=== PATIENT | female | born 1995 | race Caucasian/White ===

== ENCOUNTER → 2016-05-21 | Outpatient (CLI) | payer MEDICAID, OTHER ==
[~2016-05-21] MED LIST: ONDA8TAB8 SL; PROM25TA5 PO; TERC0.4C2 VAGINAL; TERC0.8C VAGINAL; [UNRECOGNIZED DRUG - CODE] PO
== END ==
LOC: HPND 14:25
PROVIDERS: ATTEND Obstetrics & Gynecology
DX: O26.841 Uterine size-date discrepancy, first trimester (principal); Z3A.08 8 weeks gestation of pregnancy
CPT/HCPCS: 76801

== ENCOUNTER → 2016-09-03 | Outpatient (CLI) | payer MEDICAID ==
[~2016-09-03] MED LIST changes: -PROM25TA5 PO; -TERC0.4C2 VAGINAL
== END ==
LOC: HPND 08:30
PROVIDERS: ATTEND Obstetrics & Gynecology
DX: O26.872 Cervical shortening, second trimester (principal); O34.82 Maternal care for other abnormalities of pelvic organs, second trimester; O44.42 Low lying placenta NOS or without hemorrhage, second trimester; Z3A.23 23 weeks gestation of pregnancy
CPT/HCPCS: 76816; 76817

== ENCOUNTER → 2016-10-01 | Outpatient (CLI) | payer MEDICAID | LOC: HPND 08:58 | PROVIDERS: ATTEND Obstetrics & Gynecology | DX: O34.82 Maternal care for other abnormalities of pelvic organs, second trimester (principal) | CPT/HCPCS: 76816; 76818; 76820; 76821 ==

== ENCOUNTER 2016-11-08 09:52 | Emergency (ER) | payer MEDICAID ==
[~2016-11-08 09:52] MED LIST changes: -TERC0.8C VAGINAL
--- NOTE | 2016-11-08 11:09 | PD ---
HPI Chief Complaint lower abd pressure Date Seen: Nov 08, 2016 Time Seen: 10:41 Travel History International Travel<30 Days: No Contact w/Intl Traveler<30Days: No History of Present Illness HPI 21 yo at 33/1 wks presented to OB triage with complaints of lower abd pressure since Saturday. Pt also stated she had 1 episode of vomiting this am, now resolved. Denies LOF, vaginal bleeding, and contractions. Endorses movement. Denies RODRIGUEZ, SOB Of note: Pt stated this past Saturday she went to [facility] in [place] for the lower abd pressure, she was told she was 2cm dilated, given only 1 dose of betamethasone and discharged on Saturday. Pt also stated she has tried to get an appointment with her OB this wk, but was not able to and thus decided to come to triage for evaluation. Weeks Gestation: 33 Para: 2 : 4 Miscarriage: 1 History Past Medical History Narrative Medical asthma- well controlled (has not used albuterol inhaler in 1 yr) Obstetric History Obstetric History -1 miscarriage at 8 wks gestation, 2012 - x2 (2012, 2013) full term, no complications -current complicated by IUGR and echogenic bowels Past Surgical History Narrative Surgical D&C for miscarriage, 2012 Family History Narrative Family History arrhythmia- maternal grandparents DM- paternal grandparents Social History Alcohol Use: No Tobacco Use: No Substance Abuse: No Allergies-Medications (Allergen,Severity, Reaction): Coded Allergies: No Known Allergies (Verified , 10/15/16) Home Meds Active Scripts Ondansetron Odt (Ondansetron Odt) 8 Mg Tab, 8 MG SL Q8H Y for NAUSEA OR VOMITING , #30 TAB 1 Refill Prov:Renata Mustafa CNM 06/18/16 Vit Without Vit A W/ (Nestabs Dha 32-1 mg) 1 Hector Hector, 1 PACK PO DAILY, #30 BOX 7 Refills Prov:Renata Mustafa CNM [facility] 05/08/16 Review of Systems Except as stated in HPI: all other systems reviewed are Neg Physical Exam Narrative GENERAL: Well-nourished, well-developed patient. SKIN: Warm and dry. HEAD: Normocephalic and atraumatic. EYES: No scleral icterus. No injection or drainage. ENT: No nasal drainage noted. Mucous membranes pink. Airway patent. NECK: Supple, trachea midline. No JVD. CARDIOVASCULAR: Regular rate and rhythm without murmurs, gallops, or rubs. RESPIRATORY: Breath sounds equal bilaterally. No accessory muscle use. BREASTS: Bilateral exam showed no masses , no retractions, no nipple discharge. ABDOMEN/GI: Abdomen soft, non-tender, bowel sounds present, no rebound, no guarding Gravid to 33/1 weeks size GENITOURINARY: External Genitalia: intact and normal in appearance Cervix: posterior Dilatation: 2 cm, internal os closed Membranes: intact Uterine Contractions: none FHT's: Category: 1 Baseline: 140 Reactive: positive Variability: moderate Decels: none EXTREMITIES: No cyanosis or edema. BACK: Nontender without obvious deformity. No CVA tenderness. NEUROLOGICAL: Awake and alert. Motor and sensory grossly within normal limits. Five out of 5 muscle strength in all muscle groups. Normal speech. Data Data Orders Orders Vital Signs (Adult) .ON ADMISSION (11/08/16 10:30) ^ Labor Status (11/08/16 10:30) ^ Non Stress Test (11/08/16 10:30) ^ Hydration (11/08/16 10:30) MDM Medical Record Reviewed: Yes Plan 21 yo at 33/ presented to OB triage with complaints of lower abd pressure. 1. IUP at 33 weeks, complicated by IUGR and echogenic bowel - continue routine OB care -encourage oral hydration - encourage vitamins -NST, reassuring -FHT, cat 1 -Ob diagnostic u/s reports done today (11/08): BPP 10/10 and normal doppler flow studies -Pt found to be closed on vaginal/pelvic exam - fibronectin ordered, if positive pt will receive 2nd dose of betamethasone for lung maturity. -False labor, anticipate discharge today in stable condition. -Pt to follow up with Ob () for routine care on Saturday. Update: fibronectin test positive. Discussed with pt that 2nd dose of steroids will be given but may not be effective since it was not given appropriately. sdw Dr. Dozier Diagnosis Diagnosis: Primary Impression: 33 weeks gestation of Additional Impression: Pelvic pressure in Disposition: DISCHARGE HOME Condition: Stable Patient Instructions: General Instructions, Having Your Baby: The Labor Process (GEN) Anita Barnes MD R1 Nov 08, 2016 10:50
[2016-11-08] MEDS ORDERED: ACETAMINOPHEN 325 MG TAB PO ONE (11:15)
[2016-11-08] MEDS ORDERED: BETAMETHASONE SOD PHOS/ACETATE SUSP 30 MG/5 ML VIAL IM ONE (13:00)
== END 2016-11-08 12:59 | disposition home or self-care (01) ==
LOC: HOBED 09:52
DX: O26.893 Other specified pregnancy related conditions, third trimester (principal); R10.9 Unspecified abdominal pain; Z3A.33 33 weeks gestation of pregnancy
CPT/HCPCS: 82731; 96372; 99284; J0702

== ENCOUNTER 2016-12-08 22:16 | Emergency (ER) | payer MEDICAID ==
[~2016-12-08] VITALS: Ht 165.1 cm; Wt 86.2 kg
--- NOTE | 2016-12-08 23:12 | PD ---
HPI Chief Complaint Contractions, bloody discharge, and pressure Date Seen: Dec 08, 2016 Time Seen: 23:00 Travel History International Travel<30 Days: No Contact w/Intl Traveler<30Days: No Known Affected Area: No History of Present Illness HPI Patient 21-year-old at 37 weeks presents complaining of bloody show contractions and pelvic pressure. [facility] and is being followed for mild IUGR in this baby, heart tones are reactive and she is silvestre only occasionally Weeks Gestation: 37 Para: 2 : 4 Miscarriage: 1 History Obstetric History Obstetric History 2 vaginal deliveries 1 early loss IUGR noted in this fetus with growth rate less than 3rd percentile however adequate growth has been noted in serial ultrasounds, and she has a planned induction at 38 weeks which is a week from yesterday for IUGR Social History Alcohol Use: No Tobacco Use: No Substance Abuse: No Allergies-Medications (Allergen,Severity, Reaction): Coded Allergies: No Known Allergies (Verified , 12/06/16) Home Meds Active Scripts Vit Without Vit A W/ (Nestabs Dha 32-1 mg) 1 Hector Hector, 1 PACK PO DAILY, #30 BOX 7 Refills Prov:Renata Mustafa CNM [facility] 05/08/16 Discontinued Scripts Ondansetron Odt (Ondansetron Odt) 8 Mg Tab, 8 MG SL Q8H Y for NAUSEA OR VOMITING , #30 TAB 1 Refill Prov:Renata Mustafa CNM [facility] 06/18/16 Review of Systems General / Constitutional: No: Fever, Weight Gain, Chills, Other Eyes: No: Diploplia, Blurred Vision, Visual changes, Pain, Photophobia HENT: No: Headaches, Vertigo, Lightheadedness Cardiovascular: No: Irregular Rhythm, Chest Pain or Discomfort, Palpitations, Tachycardia, Syncope, Varicosities, Edema, Cyanosis Respiratory: No: Cough, Short of Breath, Other Gastrointestinal: No: Nausea, Vomiting, Diarrhea Genitourinary: No: Decreased Urinary Output, Oliguria Musculoskeletal: No: Limited ROM, Weakness, Cramping, Edema, Pain Skin: No Rash, No Itching, No Dryness, No Lumps, No Change in Pigmentation, No Change in Nails, No Alopecia, No Lesions Neurologic: No: Weakness, Dizziness, Syncope, Focal Abnormalities, Coordination Problem, Headache, Slurred Speech, Seizures Psychiatric: No: Depression, Suicidal Ideations, Homicidal Ideation Endocrine: No: Heat Intolerance, Cold Intolerance, Polydipsia, Polyuria, Other Physical Exam Narrative GENERAL: Well-nourished, well-developed patient. SKIN: Warm and dry. HEAD: Normocephalic and atraumatic. EYES: No scleral icterus. No injection or drainage. ENT: No nasal drainage noted. Mucous membranes pink. Airway patent. NECK: Supple, trachea midline. No JVD. CARDIOVASCULAR: Regular rate and rhythm without murmurs, gallops, or rubs. RESPIRATORY: Breath sounds equal bilaterally. No accessory muscle use. BREASTS: Bilateral exam showed no masses , no retractions, no nipple discharge. ABDOMEN/GI: Abdomen soft, non-tender, bowel sounds present, no rebound, no guarding Gravid to [37-] weeks size Fundal Height: [35-] GENITOURINARY: External Genitalia: intact and normal in appearance BUS glands: [-] Cervix: [-] Dilatation: [2-] Effacement: [-thick] Station: [-3] Presentation: [vtx-] Membranes: [intact ] Uterine Contractions: [irreg-] FHT's: Category: [1-] Baseline: [-133] Reactive: [yes-] Variability: [mod-] Decels: [0-] EXTREMITIES: No cyanosis or edema. BACK: Nontender without obvious deformity. No CVA tenderness. NEUROLOGICAL: Awake and alert. Motor and sensory grossly within normal limits. Five out of 5 muscle strength in all muscle groups. Normal speech. MDM Interpretation(s) This patient is 21-year-old now at 37 weeks presents with bloody show contractions and pelvic pressure. heart rate is reactive she is having occasional contraction. Cervix is unchanged from previous exams 2 centimeters thick and -3 , vertex presentation. Plan Plan to discharge patient home to bedrest as needed to increase fluid intake for hydration Tylenol use liberally, heating pad or hot bath centrally. She is to return for her routine OB appointment or come here sooner for increasing pain etc. and of course were planning to set her up for induction in 1 week for IUGR Diagnosis Diagnosis: Primary Impression: Vaginal show Additional Impression: IUGR, Disposition: 01 DISCHARGE HOME Condition: Stable Serjio Gomez II, MD Dec 08, 2016 23:12
== END 2016-12-08 23:30 | disposition home or self-care (01) ==
LOC: HOBED 22:16
DX: O26.893 Other specified pregnancy related conditions, third trimester (principal); N89.8 Other specified noninflammatory disorders of vagina; O36.5930 Maternal care for other known or suspected poor fetal growth, third trimester, not applicable or unspecified; O62.9 Abnormality of forces of labor, unspecified; Z3A.37 37 weeks gestation of pregnancy
CPT/HCPCS: 59025

== ENCOUNTER 2016-12-14 08:02 | Inpatient (IN) | payer MEDICAID ==
[~2016-12-14] VITALS: Ht 162.6 cm; Wt 95.0 kg
[2016-12-14] VITALS (162 sets, daily range): BP systolic 91–142; BP diastolic 50–114; PULSE 72–187; RESP 16–20; TEMP 97.6–99.1
[~2016-12-14 08:02] MED LIST changes: -ONDA8TAB8 SL
[2016-12-14] MEDS ORDERED: LIDOCAINE HCL 1% 50 ML VIAL INFIL PRN (08:15)
[2016-12-14] MEDS ORDERED: MINERAL OIL 10 ML VIAL TOPICAL PRN (08:15)
[2016-12-14] MEDS ORDERED: LIDOCAINE HCL 1% 50 ML VIAL I-DERMAL PRN (08:15)
[2016-12-14] MEDS ORDERED: SODIUM CHLORID 0.9% 500 ML INJ 500 ML IV PRN (08:15)
[2016-12-14] MEDS ORDERED: CITRIC ACID-SODIUM CITRATE LIQ 30 ML UDC PO SCH (08:15)
[2016-12-14] MEDS ORDERED: OXYTOCIN 30 UNITS-500ML PREMIX 500 ML IV ONE (08:30)
[2016-12-14] MEDS ORDERED: LACTATED RINGER'S 1000 ML INJ 1,000 ML IV PRN (08:30)
[2016-12-14] MEDS ORDERED: SODIUM CHLOR 0.9% 1000 ML INJ 1,000 ML IV PRN (08:33)
[2016-12-14] MEDS ORDERED: DINOPROSTONE 10 MG VAG INSERT VAGINAL ONE (08:45)
[2016-12-14] MEDS ORDERED: ALBU6.7H INH (08:57)
[2016-12-14] MEDS ORDERED: OXYTOCIN 30 UNITS-500ML PREMIX 500 ML IV SCH ×2 (09:00→22:00)
[2016-12-14] MEDS: LACTATED RINGER'S 1000 ML INJ 1,000 ML IV SCH ×2 (09:03→18:20)
--- NOTE | 2016-12-14 09:27 | HHI.HP ---
HPI Chief Complaint Scheduled induction for IUGR Date Seen: Dec 14, 2016 Time Seen: 09:00 Travel History International Travel<30 Days: No Contact w/Intl Traveler<30Days: No History of Present Illness HPI 18-year-old at 38/2 weeks gestation presenting for scheduled induction due to IUGR. Today she feels well. Denies vagina bleeding, but endorses spotting for the last 5-7 days. Denies leakage of fluid, contractions. Endorses movement. Denies chest pain, shortness of breath, dysuria, abdominal pain. History Past Medical History Narrative Medical Intermittent asthma, has not needed her inhaler for several months Obstetric History Obstetric History Two prior vaginal deliveries, uncomplicated Past Surgical History Surgical History: No Previous Surgery Family History Family History: Negative Social History Alcohol Use: No Tobacco Use: No Substance Abuse: No Allergies-Medications (Allergen,Severity, Reaction): Coded Allergies: No Known Allergies (Verified , 12/14/16) Home Meds Active Scripts Vit Without Vit A W/ (Nestabs Dha 32-1 mg) 1 Hector Hector, 1 PACK PO DAILY, #30 BOX 7 Refills Prov:Renata Mustafa 05/08/16 Reported Medications Albuterol 6.7 GM Inh (Proventil Hfa 6.7 GM Inh) 90 Mcg/Act Aer, 1 PUFF INH Q4H Y for SHORTNESS OF BREATH, #1 INHALER 0 Refills 12/14/16 Discontinued Scripts Ondansetron Odt (Ondansetron Odt) 8 Mg Tab, 8 MG SL Q8H Y for NAUSEA OR VOMITING , #30 TAB 1 Refill Prov:Renata Mustafa 06/18/16 Review of Systems Except as stated in HPI: all other systems reviewed are Neg Physical Exam Vital Signs Date Time Temp Pulse Resp B/P (MAP) Pulse Ox O2 Delivery O2 Flow Rate FiO2 12/14/16 08:24 82 116/71 (86) Narrative GENERAL: Well-nourished, well-developed patient. SKIN: Warm and dry. HEAD: Normocephalic and atraumatic. EYES: No scleral icterus. No injection or drainage. ENT: No nasal drainage noted. Mucous membranes pink. Airway patent. CARDIOVASCULAR: Regular rate and rhythm without murmurs, gallops, or rubs. RESPIRATORY: Breath sounds equal bilaterally. No accessory muscle use. ABDOMEN/GI: Abdomen soft, non-tender, no rebound, no guarding GENITOURINARY: Cervix: midposition Dilation: 4 cm Effacement: 80% Presentation: Vertex Membranes: Intact Contractions: none FHT's: Category: 1 Baseline: 135 Reactive: Y Variability: moderate Decels: N EXTREMITIES: No cyanosis or edema. NEUROLOGICAL: Awake and alert. Motor and sensory grossly within normal limits. Normal speech. Caprini VTE Risk Assessment Caprini VTE Risk Assessment: No/Low Risk (score <= 1) Data Data Vital Signs Reviewed: Yes Orders Orders Admit To Inpatient (12/14/16 ) Code Status (12/14/16 08:13) Vital Signs (Adult) .Per protocol (12/14/16 08:13) Activity Oob Ad Jenna (12/14/16 08:13) Heart (12/14/16 08:13) Amnioinfusion (12/14/16 08:13) Urinary Catheter Management .ONCE (12/14/16 08:13) Diet Liquid (12/14/16 Breakfast) Lactated Ringer's 1000 Ml Inj (Lr 1000 M (12/14/16 08:30) Lactated Ringer's 1000 Ml Inj (Lr 1000 M (12/14/16 08:30) Sodium Chlorid 0.9% 500 Ml Inj (Ns 500 M (12/14/16 08:15) Sodium Chlor 0.9% 1000 Ml Inj (Ns 1000 M (12/14/16 08:33) Lidocaine 1% Inj (50 Ml) (Xylocaine 1% I (12/14/16 08:15) Citric Acid-Sodium Citrate Liq (Bicitra (12/14/16 08:15) Fentanyl Inj (Fentanyl Inj) (12/14/16 08:15) Fentanyl Inj (Fentanyl Inj) (12/14/16 08:15) Complete Blood Count With Diff (12/14/16 08:13) Hold Clot (12/14/16 08:13) Abo/Rh Blood Type (12/14/16 08:13) Urinalysis - C+S If Indicated (12/14/16 08:13) Drug Screen, Random Urine (12/14/16 08:13) Resp Oxygen Non Rebreathe Mask (12/14/16 ) ^ Epidural / Intrathecal Infus (12/14/16 08:13) Oxytocin 30 Units-500ml Premix (Pitocin (12/14/16 08:30) Lidocaine 1% Inj (50 Ml) (Xylocaine 1% I (12/14/16 08:15) Light Mineral Oil (Muri-Lube Oil) (12/14/16 08:15) Inpatient Certification (12/14/16 ) Specimen To Be Collected PRN (12/14/16 08:13) Specimen To Be Collected PRN (12/14/16 08:13) Dinoprostone Vag Insert (Cervidil Vag In (12/14/16 08:45) ^ Non Stress Test (12/14/16 08:48) Response To Medication .Post New Med Administration, Reaction (12/14/16 08:48) ^ Discontinue Medication (12/14/16 08:48) Oxytocin 30 Units-500ml Premix (Pitocin (12/14/16 09:00) Influenza (Quad) Vaccine Inj (Flu (Quadr (12/15/16 10:00) Group B Strep: Negative Assessment/Plan Assessment and Plan 21-year-old 012 at 38/2 weeks gestation presenting for scheduled induction due to IUGR #1 IUP Category 1 tracing, reassuring #2 GBS negative #3 IUGR Most recent growth scan on 12/06 showed baby measuring at 33/1 weeks gestation, estimated weight of 1988 g - Notify NICU team for delivery #4 intermittent asthma Asymptomatic, continue to monitor #5 induction of labor Cervix at approximately 4 cm, 70-80% effaced - Admit to labor and delivery - Began oxytocin 02/18/29 titrated per protocol - Routine labor care Martin Unger MD R2 Dec 14, 2016 09:27
--- NOTE | 2016-12-14 10:13 | PD.LABORPN ---
Subjective Subjective Doing well, no concerns. No pain, not feeling contractions, good FM. Objective Vital Signs Vital Signs Date Time Temp Pulse Resp B/P (MAP) Pulse Ox O2 Delivery O2 Flow Rate FiO2 12/14/16 09:30 80 114/74 (87) 12/14/16 09:26 16 12/14/16 08:30 98.0 16 12/14/16 08:24 82 116/71 (86) Objective Pelvic Exam: Cervix: midposition Dilatation: 4 cm Effacement: 80% Station: -2 Presentation: Vertex Membranes: AROM Uterine Contractions: Irregular every 10 min FHT's: Category: 1 Baseline: 135 Reactive: Y Variability: moderate Decels: N Weeks Gestation: 38 Gest Age Assessed Date: Dec 14, 2016 Gest Age Assessed Time: 10:12 Pt started active labor?: No Medical induction of labor?: Yes Medical induction start date: Dec 14, 2016 Medical induction start time: 09:00 Artificial rupture of membrane: Yes Artificial ROM date: Dec 14, 2016 Artifical ROM time: 10:12 Assessment/Plan Assessment and Plan 21-year-old 012 at 38/2 weeks gestation presenting for scheduled induction due to IUGR #1 IUP Category 1 tracing, reassuring #2 GBS negative #3 IUGR Most recent growth scan on 12/06 showed baby measuring at 33/1 weeks gestation, estimated weight of 1988 g - Notify NICU team for delivery #4 intermittent asthma Asymptomatic, continue to monitor #5 induction of labor Cervix at approximately 4 cm, 70-80% effaced - Continue oxytocin 02/18/29 titrated per protocol - S/p AROM Continue routine labor care Martin Unger MD R2 Dec 14, 2016 10:13
[2016-12-14 10:17] LABS: AUTOMATED NEUTROPHIL # 6.8 TH/MM3 (1.8-7.7); BASOPHIL % 0.2 % (0.0-2.0); EOSINOPHIL # 0.1 TH/MM3 (0-0.4); EOSINOPHIL % 1.4 % (0.0-4.0); HEMATOCRIT 33.9 % (35.0-46.0); HEMO FLAGS DIFF FINAL; LYMPH % 15.5 % (9.0-44.0); LYMPHOCYTE # 1.4 TH/MM3 (1.0-4.8); MEAN CELL VOLUME 91.8 FL (80.0-100.0); MEAN CORPUSCULAR HEMOGLOBIN 32.1 PG (27.0-34.0); MEAN CORPUSCULAR HGB CONC 34.9 % (32.0-36.0); MONO % 9.3 % (0.0-8.0); NEUT % 73.6 % (16.0-70.0); PLATELET COUNT 260 TH/MM3 (150-450); RED BLOOD COUNT 3.69 MIL/MM3 (4.00-5.30); RED CELL DISTRIBUTION WIDTH 12.6 % (11.6-17.2); WHITE BLOOD COUNT 9.2 TH/MM3 (4.0-11.0)
[2016-12-14 10:48] LABS: BLOOD, URINE NEG (NEG); GLUCOSE,URINE NEG (NEG); KETONE, URINE NEG (NEG); NITRITE,URINE NEG (NEG); PH, URINE 7.5 (5.0-8.5); SQUAMOUS EPITHELIAL CELL URINE <1 /hpf (0-5); URINE COLOR LIGHT-YELLOW (YELLW/STRAW)
[2016-12-14 10:50] LABS: COMMENT (UR) CULT NOT INDICATED; CULTURE IF INDICATED CULT NOT INDICATED
--- NOTE | 2016-12-14 15:12 | PD.LABORPN ---
Subjective Subjective s/p IUPC by nurse. Patient is doing well and making cervical change. Objective Vital Signs Vital Signs Date Time Temp Pulse Resp B/P (MAP) Pulse Ox O2 Delivery O2 Flow Rate FiO2 12/14/16 14:29 16 12/14/16 14:25 76 12/14/16 14:20 80 12/14/16 14:15 78 12/14/16 14:15 77 98/57 (71) 12/14/16 14:00 16 12/14/16 13:50 75 12/14/16 13:46 74 100/52 (68) 12/14/16 13:45 77 12/14/16 13:40 74 12/14/16 13:35 79 12/14/16 13:30 16 12/14/16 13:30 77 105/59 (74) 12/14/16 13:30 72 12/14/16 13:25 77 12/14/16 13:20 73 12/14/16 13:16 74 93/61 (72) 12/14/16 13:00 98.5 16 12/14/16 12:46 77 119/73 (88) 12/14/16 12:45 80 12/14/16 12:40 85 12/14/16 12:35 84 12/14/16 12:31 77 127/84 (98) 12/14/16 12:30 16 12/14/16 12:30 89 12/14/16 12:25 86 12/14/16 12:20 91 12/14/16 12:16 94 121/75 (90) 12/14/16 12:15 92 12/14/16 12:10 111 12/14/16 12:05 83 12/14/16 12:00 92 12/14/16 12:00 16 12/14/16 12:00 90 119/80 (93) 12/14/16 11:55 89 12/14/16 11:50 89 12/14/16 11:45 89 12/14/16 11:45 92 115/81 (92) 12/14/16 11:40 89 122/71 (88) 12/14/16 11:21 98.1 16 12/14/16 11:15 16 12/14/16 11:00 16 12/14/16 10:45 16 12/14/16 10:35 91 115/60 (78) 12/14/16 10:15 98.5 16 12/14/16 10:00 75 123/90 (101) 12/14/16 09:30 80 114/74 (87) 12/14/16 09:26 16 12/14/16 08:30 98.0 16 12/14/16 08:24 82 116/71 (86) Objective Pelvic Exam: Cervix: mid Dilatation: 5-6 Effacement: 100% Station: -1 Presentation: vetex Membranes: AROM Uterine Contractions: q2-3min FHT's: Category: 1 Baseline: 110 Reactive: yes Variability: moderate Decels: no Weeks Gestation: 38 Gest Age Assessed Date: Dec 14, 2016 Gest Age Assessed Time: 10:12 Pt started active labor?: No Medical induction of labor?: Yes Medical induction start date: Dec 14, 2016 Medical induction start time: 09:00 Artificial rupture of membrane: Yes Artificial ROM date: Dec 14, 2016 Artifical ROM time: 10:12 Assessment/Plan Assessment and Plan 21-year-old 012 at 38/2 weeks gestation presenting for scheduled induction due to IUGR #1 IUP Category 1 tracing, reassuring #2 GBS negative #3 IUGR Most recent growth scan on 12/06 showed baby measuring at 33/1 weeks gestation, estimated weight of 1988 g - Notify NICU team for delivery #4 intermittent asthma Asymptomatic, continue to monitor #5 induction of labor Cervix at approximately 5-6 cm, 100% effaced - Continue oxytocin 02/18/29 titrated per protocol - S/p AROM and IUPC Continue routine labor care Sarah Beth Mccoy MD R1 Dec 14, 2016 15:12
[2016-12-14] MEDS ORDERED: MEASLES, MUMPS, RUBELLA VACCINE 0.5 ML VIAL SQ ONE (16:00)
[2016-12-14] MEDS ORDERED: DIPHTH/TETANUS/ACEL PERTUSSIS (BOOSTER) 0.5 ML VIAL/PFS IM ONE (16:00)
[2016-12-14] MEDS ORDERED: ePHEDrine/NS 25 MG/5 ML SYR ONE (20:46)
[2016-12-14] MEDS ORDERED: fentaNYL 2MCG-BUPIV 0.125% INJ 100 ML ONE (20:46)
--- NOTE | 2016-12-14 21:59 | PD.OB.DELI ---
Weeks gestation: 38 Gest age assessed date: Dec 14, 2016 Gest age assessed time: 10:12 Pt started active labor?: No Medical induction of labor?: Yes Medical induction start date: Dec 14, 2016 Medical induction start time: 09:00 Artificial rupture of membrane: Yes Artificial ROM date: Dec 14, 2016 Artifical ROM time: 10:12 Anesthesia: Epidural Episiotomy: None Vaginal Delivery: Normal Presentation: Occiput anterior Nuchal Cord: x2 Delayed cord clamping (45 sec): Yes : Male, Single Delivery date: Dec 14, 2016 Delivery time: 21:47 One Minute : 8 Five Minute : 9 Weight: 2610 gm Placenta: Spontaneous delivery, Intact Laceration: No lacerations Estimated blood loss: 100cc Additional Information IUGR induction Serjio Gomez II, MD Dec 14, 2016 21:59
[2016-12-14] MEDS ORDERED: SODIUM CHLORIDE 0.9% FLUSH 10 ML FLUSH IV FLUSH PRN (22:00)
[2016-12-14] MEDS ORDERED: ALUMINUM/MAGNESIUM/SIMETH 30 ML CUP PO PRN (22:00)
[2016-12-14] MEDS ORDERED: ONDANSETRON ODT 4 MG TAB PO PRN (22:00)
[2016-12-14] MEDS ORDERED: ACETAMINOPHEN 325 MG TAB PO PRN (22:00)
[2016-12-14] MEDS ORDERED: DEXTROSE (INFANT/PEDS) GEL 2.5 ML/GM (40%) TUBE ONE (22:01)
[2016-12-14 22:13] LABS: BLOOD GAS BASE EXCESS 0.6 mmol/L (-2-2); BLOOD GAS O2 HGB SATURATION 26 % (90-100); CORD BLOOD GAS HCO3 27 mmol/L (21-29); CORD BLOOD GAS PCO2 60 mmHG (34-78); CORD BLOOD GAS PH 7.27 (7.14-7.42); CORD BLOOD GAS PO2 17 mmHG (3.0-40.0); DRAW SITE CORD BLOOD; STAT NO
[2016-12-14] MEDS ORDERED: ePHEDrine/NS 25 MG/5 ML SYR IV PUSH PRN (22:30)
[2016-12-14] MEDS ORDERED: DO NOT ADMINISTER ANTICOAGULANTS PRN (22:30)
[2016-12-14] MEDS ORDERED: NO SYSTEM NARCOTICS PRN (22:30)
[2016-12-14] MEDS ORDERED: fentaNYL 2MCG-BUPIV 0.125% 100 ML EPIDURAL SCH (22:30)
[2016-12-15] VITALS: BP 117/83; PULSE 118
[2016-12-15 00:56] VITALS: BP 104/66; PULSE 114; RESP 18; TEMP 98.6
[2016-12-15] MEDS: oxyCODONE/ACETAMINOPHEN 5 MG/325 MG TAB PO PRN ×4 (02:23→20:00)
[2016-12-15] MEDS: IBUPROFEN 600 MG TAB PO PRN ×4 (02:24→19:59)
[2016-12-15] MEDS: BENZOCAINE 20% TOPICAL SPRAY 60 ML CAN TOPICAL PRN (02:28)
[2016-12-15] MEDS: WITCH HAZEL 50%/GLYCERIN 12.5% 40 PAD JAR TOPICAL PRN (02:30)
[2016-12-15] MEDS: ZOLPIDEM TARTRATE 5 MG TAB PO PRN ×2 (03:46→21:40)
[2016-12-15 07:50] VITALS: BP 100/67; PULSE 93; RESP 18; TEMP 98.8
[2016-12-15] MEDS: DOCUSATE SODIUM 50 MG/SENNA 8.6 MG TAB PO PRN ×2 (08:31→20:00)
[2016-12-15] MEDS ORDERED: SODIUM CHLORIDE 0.9% FLUSH 10 ML FLUSH IV FLUSH SCH (09:00)
--- NOTE | 2016-12-15 09:11 | HHI.OB ---
Subjective Post Day: 1 Remarks day #1. AFVSS overnight. Pain moderate. Lochia more than a period. Denies dysuria. She is feeding the baby via breast. Appetite good, she had nausea last night but plans to eat this morning. Negative flatus. Negative bowel movement. Ambulating well. Denies calf pain, shortness of breath, or cough. Otherwise, she is doing well this morning and has no other complaints. Objective Vitals/I&O Vital Signs Date Time Temp Pulse Resp B/P (MAP) Pulse Ox O2 Delivery O2 Flow Rate FiO2 12/15/16 00:56 114 18 104/66 (79) 12/15/16 00:56 98.6 12/15/16 00:00 118 117/83 (94) 12/14/16 23:47 18 12/14/16 23:45 103 112/66 (81) 12/14/16 23:30 104 112/72 (85) 12/14/16 23:19 18 12/14/16 23:15 95 113/82 (92) 12/14/16 23:00 98 105/71 (82) 12/14/16 22:57 16 12/14/16 22:54 18 12/14/16 22:49 18 12/14/16 22:45 108 113/78 (90) 12/14/16 22:38 99.1 16 12/14/16 22:31 116 120/82 (95) 12/14/16 22:28 20 12/14/16 22:15 115/71 (86) 12/14/16 22:15 18 12/14/16 22:10 93/64 (74) 12/14/16 22:03 187 99/62 (74) 12/14/16 22:01 130 109/93 (98) 12/14/16 22:00 18 12/14/16 21:56 175 12/14/16 21:51 107 131/66 (87) 12/14/16 21:46 135 130/97 (108) 12/14/16 21:45 114 12/14/16 21:40 85 12/14/16 21:39 81 111/76 (88) 12/14/16 21:36 88 92/57 (69) 12/14/16 21:35 85 12/14/16 21:34 86 100/54 (69) 12/14/16 21:33 80 99/54 (69) 12/14/16 21:30 80 12/14/16 21:30 84 100/59 (73) 12/14/16 21:27 80 104/62 (76) 12/14/16 21:25 80 12/14/16 21:24 82 114/69 (84) 12/14/16 21:21 83 111/69 (83) 12/14/16 21:20 81 12/14/16 21:19 77 116/75 (89) 12/14/16 21:15 79 122/74 (90) 12/14/16 21:15 80 12/14/16 21:14 16 12/14/16 21:12 86 122/68 (86) 12/14/16 21:10 77 12/14/16 21:09 78 114/78 (90) 12/14/16 21:06 87 116/66 (83) 12/14/16 21:05 76 12/14/16 21:03 84 123/75 (91) 12/14/16 21:01 78 112/75 (87) 12/14/16 21:00 88 12/14/16 20:55 87 12/14/16 20:45 78 114/67 (83) 12/14/16 20:39 81 112/71 (85) 12/14/16 20:15 76 116/76 (89) 12/14/16 20:15 72 12/14/16 20:10 72 12/14/16 20:05 76 12/14/16 20:04 16 12/14/16 20:01 75 116/64 (81) 12/14/16 20:00 73 12/14/16 19:55 77 12/14/16 19:54 78 127/82 (97) 12/14/16 19:50 83 12/14/16 19:45 95 142/114 (123) 12/14/16 19:31 82 126/85 (99) 12/14/16 19:30 83 12/14/16 19:21 97.6 16 12/14/16 19:20 83 12/14/16 19:15 18 12/14/16 19:15 107 131/91 (104) 12/14/16 19:15 101 12/14/16 19:10 77 12/14/16 19:05 77 12/14/16 19:01 80 12/14/16 19:01 131/89 (103) 12/14/16 19:00 89 12/14/16 18:55 87 12/14/16 18:50 88 12/14/16 18:46 92 130/88 (102) 12/14/16 18:45 87 12/14/16 18:40 91 12/14/16 18:31 99 131/83 (99) 12/14/16 18:30 104 12/14/16 18:25 86 12/14/16 18:24 16 12/14/16 18:20 81 12/14/16 18:15 87 12/14/16 18:15 85 98/62 (74) 12/14/16 18:10 95 12/14/16 18:05 90 12/14/16 18:00 88 98/60 (73) 12/14/16 18:00 16 12/14/16 18:00 81 12/14/16 17:56 73 12/14/16 17:56 91/50 (64) 12/14/16 17:54 77 91/56 (68) 12/14/16 17:35 78 12/14/16 17:31 77 118/84 (95) 12/14/16 17:30 75 16 12/14/16 17:25 78 12/14/16 17:20 76 12/14/16 17:16 78 12/14/16 17:16 129/79 (96) 12/14/16 17:15 82 12/14/16 17:01 82 12/14/16 17:01 119/81 (94) 12/14/16 17:00 16 12/14/16 17:00 77 12/14/16 16:55 82 12/14/16 16:50 79 12/14/16 16:46 81 119/85 (96) 12/14/16 16:45 82 12/14/16 16:38 83 128/80 (96) 12/14/16 16:35 81 12/14/16 16:30 16 12/14/16 16:30 84 12/14/16 16:25 87 12/14/16 16:20 82 12/14/16 16:15 90 12/14/16 15:59 16 12/14/16 15:55 90 12/14/16 15:40 88 12/14/16 15:35 86 12/14/16 15:30 86 98/73 (81) 12/14/16 15:30 87 12/14/16 15:29 98.7 16 12/14/16 15:25 87 12/14/16 15:20 82 12/14/16 15:16 88 105/66 (79) 12/14/16 15:15 82 12/14/16 15:10 85 12/14/16 15:05 87 12/14/16 15:00 74 115/84 (94) 12/14/16 15:00 16 12/14/16 14:55 79 12/14/16 14:50 80 12/14/16 14:45 81 12/14/16 14:45 81 106/67 (80) 12/14/16 14:40 78 12/14/16 14:35 81 12/14/16 14:30 81 94/64 (74) 12/14/16 14:30 80 12/14/16 14:29 16 12/14/16 14:25 76 12/14/16 14:20 80 12/14/16 14:15 78 12/14/16 14:15 77 98/57 (71) 12/14/16 14:00 16 12/14/16 13:50 75 12/14/16 13:46 74 100/52 (68) 12/14/16 13:45 77 12/14/16 13:40 74 12/14/16 13:35 79 12/14/16 13:30 16 12/14/16 13:30 77 105/59 (74) 12/14/16 13:30 72 12/14/16 13:25 77 12/14/16 13:20 73 12/14/16 13:16 74 93/61 (72) 12/14/16 13:00 98.5 16 12/14/16 12:46 77 119/73 (88) 12/14/16 12:45 80 12/14/16 12:40 85 12/14/16 12:35 84 12/14/16 12:31 77 127/84 (98) 12/14/16 12:30 16 12/14/16 12:30 89 12/14/16 12:25 86 12/14/16 12:20 91 12/14/16 12:16 94 121/75 (90) 12/14/16 12:15 92 12/14/16 12:10 111 12/14/16 12:05 83 12/14/16 12:00 92 12/14/16 12:00 16 12/14/16 12:00 90 119/80 (93) 12/14/16 11:55 89 12/14/16 11:50 89 12/14/16 11:45 89 12/14/16 11:45 92 115/81 (92) 12/14/16 11:40 89 122/71 (88) 12/14/16 11:21 98.1 16 12/14/16 11:15 16 12/14/16 11:00 16 12/14/16 10:45 16 12/14/16 10:35 91 115/60 (78) 12/14/16 10:15 98.5 16 12/14/16 10:00 75 123/90 (101) 12/14/16 09:30 80 114/74 (87) 12/14/16 09:26 16 Objective Remarks GENERAL: Well-nourished, well-developed patient. CARDIOVASCULAR: Regular rate and rhythm without murmurs, gallops, or rubs. RESPIRATORY: Breath sounds equal bilaterally. No accessory muscle use. ABDOMEN/GI: Abdomen soft, non-tender. Fundus: Firm, mildly tender to palpation below umbilicus. GENITOURINARY: Moderate bleeding. EXTREMITIES: No cyanosis or edema, non-tender, without signs of DVT. Medications and IVs Current Medications Medications (Trade) Dose Ordered Sig/Elena Route Start Time Stop Time Status Last Admin Lactated Ringer's 1,000 ml @ 125 mls/hr Q8H IV 12/14/16 08:30 12/14/16 18:20 Lactated Ringer's 1,000 ml @ 3,000 mls/hr Q20M PRN IV 12/14/16 08:30 Sodium Chloride 1,000 ml @ 100 mls/hr Q10H PRN IV 12/14/16 08:33 (Xylocaine 1% Inj (50 ml)) 0.1 ml UNSCH X1 PRN I-DERMAL 12/14/16 08:15 12/17/16 08:14 (Bicitra Liq) 30 ml LITURGICAL MUSIC DIRECTOR PO 12/14/16 08:15 12/18/16 08:14 (fentaNYL INJ) 50 mcg Q1H PRN IV PUSH 12/14/16 08:15 (fentaNYL INJ) 100 mcg Q1H PRN IV PUSH 12/14/16 08:15 12/14/16 19:50 (Xylocaine 1% Inj (50 ml)) 10 ml UNSCH X1 PRN INFIL 12/14/16 08:15 12/16/16 08:14 (Muri-Lube Oil) 10 ml UNSCH PRN TOPICAL 12/14/16 08:15 Oxytocin 500 ml @ 0 mls/hr TITRATE IV 12/14/16 09:00 (Flu (Quadrivalent) Vaccine Inj) 0.5 ml ONCE ONCE IM 12/15/16 10:00 12/15/16 10:01 (NS Flush) 2 ml BID IV FLUSH 12/15/16 09:00 (NS Flush) 2 ml UNSCH PRN IV FLUSH 12/14/16 22:00 (Tylenol) 650 mg Q4H PRN PO 12/14/16 22:00 (Motrin) 600 mg Q6H PRN PO 12/14/16 22:00 12/15/16 08:31 (Percocet 5-325 Mg) 1 tab Q4H PRN PO 12/14/16 22:00 12/15/16 08:32 (Americaine 20% Top Spr) 1 spray Q4H PRN TOPICAL 12/14/16 22:00 12/15/16 02:28 (Tucks Pads) 1 applic QID PRN TOPICAL 12/14/16 22:00 12/15/16 02:30 (Tracy-Colace) 2 tab Q12H PRN PO 12/14/16 22:00 12/15/16 08:31 (Ambien) 5 mg HS PRN PO 12/14/16 22:00 12/15/16 03:46 (Mag-Al Plus Susp Liq) 15 ml Q8H PRN PO 12/14/16 22:00 (Zofran Odt) 4 mg Q6H PRN PO 12/14/16 22:00 12/14/16 23:15 Miscellaneous Information No systemic narcotics to be given except... UNSCH PRN .XX 12/14/16 22:30 12/15/16 22:29 Miscellaneous Information DO NOT ADMINISTER ANY ANTICOAGUL... UNSCH PRN .XX 12/14/16 22:30 12/15/16 22:29 Fentanyl/ Bupivacaine HCl 100 ml @ 0 mls/hr TITRATE EPIDURAL 12/14/16 22:30 12/14/16 22:57 (ePHEDrine/NS 25 MG/5 ML SYR) 10 mg UNSCH PRN IV PUSH 12/14/16 22:30 12/15/16 22:29 Assessment/Plan Assessment and Plan 21-year-old , delivered vaginally on 12/14/16. day 1 -Continue routine care -Motrin and Percocet PRN for pain -Pericolase PRN for constipation -Encouraged OOB. Advised pelvic rest for 6 wks -Will need a follow-up appointment within 6 wks -Re: ctrl - would like the patch Discussed with Dr. Gomez Discharge Planning Anticipate discharge in 1 day Rose Mary Matos MD R2 Dec 15, 2016 09:11
[2016-12-15] MEDS ORDERED: INFLUENZA VIRUS VACCINE (QUADRIVALENT) 0.5 ML SYR IM ONE (10:00)
[2016-12-15 15:00] VITALS: TEMP 98.7
[2016-12-15 15:25] VITALS: TEMP 99
[2016-12-15 19:55] VITALS: BP 92/62; PULSE 111; TEMP 97.9
[2016-12-16] MEDS: IBUPROFEN 600 MG TAB PO PRN ×2 (03:29→09:24)
[2016-12-16] MEDS: oxyCODONE/ACETAMINOPHEN 5 MG/325 MG TAB PO PRN ×2 (03:29→09:25)
[2016-12-16 03:30] VITALS: TEMP 98.8
[2016-12-16 03:47] VITALS: TEMP 98.8
[2016-12-16] MEDS: WITCH HAZEL 50%/GLYCERIN 12.5% 40 PAD JAR TOPICAL PRN (05:58)
[2016-12-16 08:00] VITALS: BP 102/69; PULSE 90; RESP 18; TEMP 97.9
--- NOTE | 2016-12-16 08:26 | HHI.OB ---
Subjective Post Day: 2 Remarks day #2. AFVSS overnight. Pain well-controlled. Lochia much tester vibrator equipment than previous day. Denies dysuria. She is feeding the baby via breast. Appetite good. Positive flatus. Negative bowel movement. Ambulating well. Denies calf pain, shortness of breath, or cough. Otherwise, she is doing well this morning and has no other complaints. (Eko,Rose Mary Molina MD R2) Remarks Patient seen and evaluated with resident under direct supervision, agree with assessment and plan. (Connor Bloom MD) Objective Vitals/I&O Vital Signs Date Time Temp Pulse Resp B/P (MAP) Pulse Ox O2 Delivery O2 Flow Rate FiO2 12/16/16 03:47 98.8 12/16/16 03:30 98.8 12/15/16 19:55 97.9 111 92/62 (72) 12/15/16 15:25 99.0 12/15/16 15:00 98.7 Objective Remarks GENERAL: Well-nourished, well-developed patient. CARDIOVASCULAR: Regular rate and rhythm without murmurs, gallops, or rubs. RESPIRATORY: Breath sounds equal bilaterally. No accessory muscle use. ABDOMEN/GI: Abdomen soft, non-tender. Fundus: Firm, non-tender to palpation below umbilicus. GENITOURINARY: Light bleeding. EXTREMITIES: No cyanosis or edema, non-tender, without signs of DVT. Medications and IVs Current Medications Medications (Trade) Dose Ordered Sig/Elena Route Start Time Stop Time Status Last Admin Lactated Ringer's 1,000 ml @ 125 mls/hr Q8H IV 12/14/16 08:30 12/14/16 18:20 Lactated Ringer's 1,000 ml @ 3,000 mls/hr Q20M PRN IV 12/14/16 08:30 Sodium Chloride 1,000 ml @ 100 mls/hr Q10H PRN IV 12/14/16 08:33 (Xylocaine 1% Inj (50 ml)) 0.1 ml UNSCH X1 PRN I-DERMAL 12/14/16 08:15 12/17/16 08:14 (Bicitra Liq) 30 ml HOSPICE OFFICE COORDINATOR PO 12/14/16 08:15 12/18/16 08:14 (fentaNYL INJ) 50 mcg Q1H PRN IV PUSH 12/14/16 08:15 (fentaNYL INJ) 100 mcg Q1H PRN IV PUSH 12/14/16 08:15 12/14/16 19:50 (Muri-Lube Oil) 10 ml UNSCH PRN TOPICAL 12/14/16 08:15 Oxytocin 500 ml @ 0 mls/hr TITRATE IV 12/14/16 09:00 (NS Flush) 2 ml BID IV FLUSH 12/15/16 09:00 (NS Flush) 2 ml UNSCH PRN IV FLUSH 12/14/16 22:00 (Tylenol) 650 mg Q4H PRN PO 12/14/16 22:00 (Motrin) 600 mg Q6H PRN PO 12/14/16 22:00 12/16/16 03:29 (Percocet 5-325 Mg) 1 tab Q4H PRN PO 12/14/16 22:00 12/16/16 03:29 (Americaine 20% Top Spr) 1 spray Q4H PRN TOPICAL 12/14/16 22:00 12/15/16 02:28 (Tucks Pads) 1 applic QID PRN TOPICAL 12/14/16 22:00 12/16/16 05:58 (Tracy-Colace) 2 tab Q12H PRN PO 12/14/16 22:00 12/15/16 20:00 (Ambien) 5 mg HS PRN PO 12/14/16 22:00 12/15/16 21:40 (Mag-Al Plus Susp Liq) 15 ml Q8H PRN PO 12/14/16 22:00 (Zofran Odt) 4 mg Q6H PRN PO 12/14/16 22:00 12/14/16 23:15 Fentanyl/ Bupivacaine HCl 100 ml @ 0 mls/hr TITRATE EPIDURAL 12/14/16 22:30 12/14/16 22:57 (EkoRose Mary MD R2) Assessment/Plan Assessment and Plan 21-year-old , delivered vaginally on 12/14/16. day 2 -Continue routine care -Motrin and Percocet PRN for pain -Pericolase PRN for constipation -Encouraged OOB. Advised pelvic rest for 6 wks -Will need a follow-up appointment within 6 wks -Re: ctrl - would like the patch Discussed with Dr. Bloom Discharge Planning Discharge home today (Rose Mary Matos MD R2) Rose Mary Matos MD R2 Dec 16, 2016 08:26 Connor Bloom MD Dec 16, 2016 09:10
[2016-12-16] MEDS ORDERED: IBUP-232 PO ×2 (08:27→08:29)
--- NOTE | 2016-12-16 08:27 | HHI.DCPOC ---
Discharge Care Plan Diagnosis: (1) Vaginal delivery Report Symptoms to Your Doctor -Temperature above 100.5 degrees -Redness, of incision or excessive or foul smelling drainage -Unusual pain or calf pain -Increased vaginal bleeding -Painful or difficulty urinating -Feelings of extreme sadness or anxiety after 2 weeks Goals to Promote Your Health * To prevent worsening of your condition and complications * To maintain your health at the optimal level Directions to Meet Your Goals Take your medications as prescribed Follow your dietary instruction Follow activity as directed Ensure plenty of rest for recovery Drink fluids for hydration Keep your appointments as scheduled Take your immunizations and boosters as scheduled If your symptoms worsen call your PCP, if no PCP go to Urgent Care Center or Emergency Room Smoking is Dangerous to Your Health. Avoid second hand smoke Call the 24-hour crisis hotline for domestic abuse at Rose Mary Matos MD R2 Dec 16, 2016 08:27
[2016-12-16] MEDS: DOCUSATE SODIUM 50 MG/SENNA 8.6 MG TAB PO PRN (09:24)
[2016-12-16] MEDS: BENZOCAINE 20% TOPICAL SPRAY 60 ML CAN TOPICAL PRN (11:56)
== END 2016-12-16 12:00 | disposition home or self-care (01) | DRG 775 ==
LOC: H2EB 08:02 → H1EA 12-15 00:23
PROVIDERS: ADMIT Obstetrics & Gynecology; ATTEND Obstetrics & Gynecology
PROC: 10E0XZZ Delivery of Products of Conception, External Approach (ICD-10-PCS; principal; 2016-12-14)
PROC: 3E0P3VZ Introduction of Hormone into Female Reproductive, Percutaneous Approach (ICD-10-PCS; 2016-12-14)
PROC: 10907ZC Drainage of Amniotic Fluid, Therapeutic from Products of Conception, Via Natural or Artificial Opening (ICD-10-PCS; 2016-12-14)
PROC: 10H07YZ Insertion of Other Device into Products of Conception, Via Natural or Artificial Opening (ICD-10-PCS; 2016-12-14)
DX: O36.5930 Maternal care for other known or suspected poor fetal growth, third trimester, not applicable or unspecified (principal); J45.20 Mild intermittent asthma, uncomplicated; Z37.0 Single live birth; Z3A.38 38 weeks gestation of pregnancy; O99.52 Diseases of the respiratory system complicating childbirth; O69.81X0 Labor and delivery complicated by cord around neck, without compression, not applicable or unspecified; Z23 Encounter for immunization
CPT/HCPCS: 59025; 80307; 81001; 82805; 85025; 86900; 86901; 88307; 90686; 90707; J2590; J3010; J7120; Q2038

== ENCOUNTER 2017-01-22 09:54 | Emergency (ER) | payer MEDICAID ==
[~2017-01-22 09:54] MED LIST changes: +ALBU6.7H INH; +IBUP-232 PO; +SPRI28TA PO
[2017-01-22 09:56] VITALS: BP 141/97; PULSE 56; RESP 16; TEMP 98.3; O2SAT 100
[2017-01-22] MEDS ORDERED: IBUP-232 PO (10:04)
--- NOTE | 2017-01-22 10:43 | PD ---
HPI Chief Complaint: Oral / Dental Pain or Problem Time Seen by Provider: 10:19 Travel History International Travel<30 days: No Contact w/Intl Traveler<30days: No Traveled to known affect area: No History of Present Illness HPI 22 year-old female presents to the emergency rooms for evaluation of severe right lower dental pain that started 2 days ago. Patient states she had her wisdom tooth extracted one week ago but did not start having problems until 2 days ago. She has been calling her dentist but they could not get her in until tomorrow morning. She was discharged with Tylenol 3, ibuprofen. States she finished the Tylenol No. 3 and ibuprofen is not helping. She was not placed on antibiotics. Denies fever, chills, nausea, vomiting. Reports severe pain that radiates into the entire right side of her face. She associated headache. PFSH Past Medical History Cancer: No Diabetes: No Psychiatric: No Seizures: No Thyroid Disease: No Ulcer: No Social History Alcohol Use: No Tobacco Use: No Substance Use: No Allergies-Medications (Allergen,Severity, Reaction): Coded Allergies: No Known Allergies (Verified Adverse Reaction, Unknown, 01/22/17) Reported Meds & Prescriptions Reported Meds & Active Scripts Active Reported Ibuprofen 600 Mg Tab 600 Mg PO Q6H PRN Review of Systems Except as stated in HPI: all other systems reviewed are Neg Physical Exam Narrative GENERAL: Well-developed, well-nourished female in no acute distress. Afebrile. Ambulatory. SKIN: Focused skin assessment warm/dry. HEAD: Atraumatic. Normocephalic. EYES: Pupils equal and round. No scleral icterus. No injection or drainage. ENT: No nasal bleeding or discharge. Mucous membranes pink and moist. DENTAL: No loose or chipped teeth. No malocclusion. Tooth #32 has been removed and socket has 2 sutures intact. No obvious blood clots. No erythema, drainage, or edema. NECK: Trachea midline. No JVD. CARDIOVASCULAR: Regular rate and rhythm. No murmur appreciated. RESPIRATORY: No accessory muscle use. Clear to auscultation. Breath sounds equal bilaterally. Data Data Last Documented VS Vital Signs Date Time Temp Pulse Resp B/P (MAP) Pulse Ox O2 Delivery O2 Flow Rate FiO2 01/22/17 09:56 98.3 56 16 141/97 (112) 100 MDM Medical Decision Making Medical Screen Exam Complete: Yes Emergency Medical Condition: Yes Medical Record Reviewed: Yes Differential Diagnosis Dry socket, dental pain, infection unlikely Narrative Course 22-year-old female presents to the emergency room for severe dental pain for the past 2 days. She had tooth #32 extracted 1 week ago. He has a follow-up appointment with her dentist tomorrow morning. States she has severe pain and the ibuprofen is not helping. Physical exam reveals tooth #32 socket with intact sutures. No evidence of infection. Patient likely has dry socket. She was given injection of bupivacaine in the emergency room. Discharged with Magic mouthwash. Told to follow up with her dentist or return for worsening symptoms. She understands and agrees to plan. Diagnosis Primary Impression: Dry tooth socket Referrals: Dentist Additional Instructions: Magic mouthwash as directed, as needed for pain. Follow-up with a dentist. Return to the emergency room for worsening symptoms. Disposition: 01 DISCHARGE HOME Condition: Stable Maureen Capps Jan 22, 2017 10:43
[2017-01-22] MEDS ORDERED: MAGICADU2 SWISH-SWAL ×2 (10:44→11:09)
== END 2017-01-22 11:12 | disposition home or self-care (01) ==
LOC: NEPK 09:54
DX: M27.3 Alveolitis of jaws (principal); R51 Headache
CPT/HCPCS: 99283